=== PATIENT | male | born 1965 | race African-American/Black ===

== ENCOUNTER 2025-01-20 13:23 | Inpatient (IN) | payer OTHER, MEDICAID ==
[~2025-01-20] VITALS: Ht 185.4 cm; Wt 102.1 kg
[2025-01-20] MEDS ORDERED: SIMV-259 PO (14:35)
[2025-01-20] MEDS ORDERED: AMLO2.5T96 PO (14:35)
[2025-01-20] MEDS ORDERED: LISI-892 PO (14:35)
[2025-01-20] MEDS ORDERED: QUET25TA PO (14:35)
[2025-01-20 15:36] LABS: ANION GAP 12 mmol/L (8-16); CARBON DIOXIDE 25 mmol/L (22-29); CHLORIDE 108 mmol/L (98-107); CREATININE 1.26 mg/dL (0.60-1.30); GLOMERULAR FILTR. RATE CALC > 60 mL/min (>60); GLUCOSE,RANDOM 149 mg/dL (70-110); POTASSIUM 3.7 mmol/L (3.5-5.1); SODIUM SERUM 144 mmol/L (136-145); UREA NITROGEN, BLOOD 16 mg/dL (7-18)
[2025-01-20 15:51] LABS: ALCOHOL, BLOOD (SERUM) < 3 mg/dL (0-10)
[2025-01-20 16:19] LABS: EOSINOPHILS % (AUTO) 0.2 % (1.0-6.0); HEMATOCRIT 48.5 % (41-53); HEMOGLOBIN 16.2 g/dL (13.5-17.5); LYMPHOCYTES # (AUTO) 1.7 K/uL (1.0-4.8); LYMPHOCYTES % (AUTO) 18.7 % (22.0-44.0); MEAN CORPUSCULAR HEMOGLOBIN 29.4 pg (26.0-34.0); MEAN CORPUSCULAR HGB CONC 33.4 G/dL (31.0-37.0); MEAN CORPUSCULAR VOLUME 88 fL (80-100); MONOCYTES # (AUTO) 0.9 K/uL (0.1-1.0); MONOCYTES % (AUTO) 9.2 % (2.0-9.0); NEUTROPHILS # (AUTO) 6.6 K/uL (1.8-7.7); NEUTROPHILS % (AUTO) 70.9 % (40.0-70.0); PLATELET COUNT (AUTO) 194 K/uL (150-450); RED BLOOD CELL COUNT(AUTO) 5.51 MIL/uL (4.50-5.90); RED CELL DISTRIBUTION WIDTH 14.3 % (11.5-14.5); WHITE BLOOD COUNT (AUTO) 9.3 K/uL (4.5-11.0)
[2025-01-20] MEDS ORDERED: ASPI81TA87 PO (17:12)
[2025-01-20] MEDS ORDERED: CARV3 PO (17:12)
[2025-01-20 17:39] LABS: COVID AG,FIA SOURCE NPH
[2025-01-20 18:01] LABS: SARS-COV2 (COVID) ANTIGEN,FIA Negative (Negative)
[2025-01-20] MEDS ORDERED: HALOPERIDOL 5 MG TABLET PO PRN (18:30)
[2025-01-21 02:10] VITALS: BP 134/73; PULSE 94; RESP 18; TEMP 98.6; O2SAT 99
[2025-01-21] MEDS: LORazepam 2 MG TABLET PO PRN (02:24)
[2025-01-21] MEDS: ZOLPIDEM TARTRATE 10 MG TABLET PO PRN (02:25)
[2025-01-21] MEDS ORDERED: IBUPROFEN 400 MG TABLET PO PRN (10:45)
[2025-01-21] MEDS ORDERED: ALBUTEROL SULFATE HFA 90 MCG/PUFF 8 GM INHALER IH PRN (10:45)
[2025-01-21] MEDS ORDERED: DOCUSATE SODIUM 100 MG CAPSULE PO PRN (10:45)
[2025-01-21] MEDS ORDERED: GuaiFENesin/D-METHORPHAN [SUGAR-FREE] 200-20MG/10 ML SYRUP UDCUP PO PRN (10:45)
[2025-01-21] MEDS ORDERED: CloNIDine HCL 0.1 MG TABLET PO PRN (10:45)
[2025-01-21] MEDS ORDERED: NICOTINE 14 MG/24 HOUR PATCH TD PRN (10:45)
[2025-01-21] MEDS ORDERED: ONDANSETRON 4 MG TABLET PO PRN (10:45)
[2025-01-21] MEDS ORDERED: MAGNESIUM HYDROXIDE SUSPENSION 30 ML UDCUP PO PRN (10:45)
[2025-01-21] MEDS ORDERED: MAG HYDROX/ALUMINUM HYD/SIMETH ES 30 ML SUSPENSION UDCUP PO PRN (10:45)
[2025-01-21] MEDS ORDERED: PETROLATUM,WHITE 28 GM JELLY TP PRN (10:45)
[2025-01-21] MEDS ORDERED: LOPERAMIDE HCL 2 MG CAPSULE PO PRN (10:45)
[2025-01-21] MEDS ORDERED: ACETAMINOPHEN 325 MG TABLET PO PRN (10:45)
[2025-01-21] MEDS: QUEtiapine FUMARATE 100 MG TABLET PO SCH (10:52)
[2025-01-21 10:59] VITALS: BP 116/90; PULSE 87; RESP 18; TEMP 97.8; O2SAT 100
[2025-01-21 22:21] VITALS: BP 119/70; PULSE 72; RESP 16; TEMP 97.6; O2SAT 100
[2025-01-22] MEDS: ASPIRIN 81 MG DR TABLET PO SCH (09:18)
[2025-01-22 09:43] VITALS: BP 135/76; PULSE 81; RESP 18; TEMP 97.7; O2SAT 100
[2025-01-22 21:07] VITALS: BP 157/91; PULSE 83; RESP 18; TEMP 98.1; O2SAT 98
[2025-01-22 21:26] LABS: APPEARANCE,URINE CLEAR (CLEAR); BILIRUBIN,URINE NEGATIVE (NEGATIVE); COLOR,URINE LIGHT YELLOW (YELLOW); GLUCOSE, URINE (UA) >=1000 mg/dL (NEGATIVE); KETONES,URINE TRACE mg/dL (NEGATIVE); LEUKOCYTE ESTERASE ,URINE NEGATIVE (NEGATIVE); NITRATE,URINE NEGATIVE (NEGATIVE); OCCULT BLOOD,URINE SMALL (NEGATIVE); PH,URINE 5.5 (5.0-8.0); PH,URINE DRUG SCREEN 5.5 (5.0-8.0); PROTEIN,URINE NEGATIVE (NEGATIVE); SPECIFIC GRAVITIY, URINE 1.029 (1.003-1.030); UROBILINOGEN,URINE <=1.0 mg/dL (<=1.0)
[2025-01-22 21:33] LABS: ALCOHOL, URINE DRUG SCREEN NEGATIVE (NEGATIVE); AMPHET/METH SCREEN,URINE POSITIVE (NEGATIVE); BARBITURATE SCREEN, URINE NEGATIVE (NEGATIVE); BENZODIAZEPINES SCREEN,URINE NEGATIVE (NEGATIVE); CANNABINOID SCREEN,URINE NEGATIVE (NEGATIVE); COCAINE SCREEN,URINE NEGATIVE (NEGATIVE); METHADONE SCREEN, URINE NEGATIVE (NEGATIVE); OPIATE SCREEN,URINE NEGATIVE (NEGATIVE); PHENCYCLIDINE SCREEN,URINE NEGATIVE (NEGATIVE)
[2025-01-22 21:34] LABS: BACTERIA,URINE Rare /HPF (None Seen); RBC,URINE 0-2 /HPF (0-2); SQUAMOUS EPITHELIAL CELL,UR Rare /LPF (None Seen); WBC,URINE 0-2 /HPF (0-5)
[2025-01-23 08:28] LABS: HEMOGLOBIN A1C 7.4 % (3.8-5.6)
[2025-01-23 08:29] LABS: THYROID STIMULATING HORMONE 0.47 uIU/mL (0.36-3.74)
[2025-01-23 08:46] LABS: CHOL/HDL RATIO 3.1 (4.2-7.3)
[2025-01-23 09:59] VITALS: BP 142/89; PULSE 78; RESP 20; TEMP 97.9
[2025-01-23] MEDS: AmLODIPine BESYLATE 2.5 MG TABLET PO SCH (10:01)
[2025-01-23 22:44] VITALS: BP 125/82; PULSE 84; RESP 18; TEMP 97.1; O2SAT 97
[2025-01-24 09:11] VITALS: BP 123/80; PULSE 85; RESP 18; TEMP 97.7; O2SAT 99
[2025-01-24 22:53] VITALS: BP 141/92; PULSE 79; RESP 18; TEMP 97.7; O2SAT 100
[2025-01-25 10:55] VITALS: PULSE 72; RESP 17; TEMP 97.5; O2SAT 100
[2025-01-25 21:15] VITALS: PULSE 79; RESP 19; TEMP 98.2; O2SAT 98
[2025-01-25] MEDS: SIMVASTATIN 20 MG TABLET PO SCH (21:40)
[2025-01-26 09:52] VITALS: BP 132/91; PULSE 79; RESP 17; TEMP 98; O2SAT 97
[2025-01-26 22:11] VITALS: RESP 18
[2025-01-27 08:59] VITALS: BP 118/76; PULSE 62; RESP 18; TEMP 98; O2SAT 98
[2025-01-27 20:49] VITALS: BP 14/88; PULSE 77; RESP 18; TEMP 98.6
[2025-01-28 11:23] VITALS: BP 165/107; PULSE 69; RESP 18; TEMP 97.4; O2SAT 95
[2025-01-28 21:29] VITALS: BP 149/98; PULSE 69; RESP 18; TEMP 97.8; O2SAT 96
[2025-01-29] MEDS: CARVEDILOL 6.25 MG TABLET PO SCH (11:36)
[2025-01-29 12:46] VITALS: BP 141/107; PULSE 86; RESP 18; TEMP 98.2
[2025-01-29 21:42] VITALS: BP 141/86; PULSE 72; RESP 18; TEMP 98.2; O2SAT 98
[2025-01-30] MEDS: MetFORMIN HCL 500 MG TABLET PO SCH (07:06)
[2025-01-30 09:00] VITALS: BP 160/100; PULSE 83; RESP 18; TEMP 97.6
[2025-01-30 20:39] VITALS: BP 129/85; PULSE 16; RESP 16; TEMP 97.2; O2SAT 98
[2025-01-31 08:30] VITALS: BP 153/107; PULSE 68; RESP 18; TEMP 97.2; O2SAT 99
[2025-01-31 21:26] VITALS: BP 124/70; PULSE 77; RESP 18; TEMP 97.5; O2SAT 100
[2025-02-01 12:58] VITALS: BP 138/96; PULSE 78; RESP 18; TEMP 97.7; O2SAT 96
[2025-02-01 20:00] VITALS: BP 138/96; PULSE 78; RESP 19; TEMP 97.7; O2SAT 96
[2025-02-02 09:00] VITALS: BP 139/89; PULSE 96; RESP 19; TEMP 97; O2SAT 96
[2025-02-02] MEDS: OMEPRAZOLE 20 MG CAPSULE PO SCH (09:00)
[2025-02-02 20:37] VITALS: BP 115/70; PULSE 67; RESP 18; TEMP 97.1; O2SAT 99
[2025-02-03 08:42] VITALS: BP 126/75; PULSE 72; RESP 18; TEMP 98; O2SAT 98
[2025-02-03 20:30] VITALS: BP 138/85; PULSE 63; RESP 17; TEMP 97.9; O2SAT 100
[2025-02-04 11:07] VITALS: BP 136/87; PULSE 67; RESP 17; TEMP 97.5; O2SAT 98
[2025-02-04 21:30] VITALS: BP 128/72; RESP 18
[2025-02-05] MEDS ORDERED: OMEP-148 PO (09:48)
[2025-02-05] MEDS ORDERED: METF-1211 PO (09:48)
== END 2025-02-05 17:44 | disposition home or self-care (01) | DRG 885 ==
LOC: EMS 13:25 → 3EI 01-21 01:05 → EMS 01-21 01:30
PROVIDERS: ADMIT Psychiatry & Neurology Child & Adolescent Psychiatry; ATTEND Psychiatry & Neurology Child & Adolescent Psychiatry
PROC: GZHZZZZ Group Psychotherapy (ICD-10-PCS; principal; 2025-01-22)
PROC: GZ52ZZZ Individual Psychotherapy, Cognitive (ICD-10-PCS; 2025-01-22)
DX: F20.9 Schizophrenia, unspecified (principal); R45.851 Suicidal ideations; I10 Essential (primary) hypertension; E78.5 Hyperlipidemia, unspecified; G47.00 Insomnia, unspecified; Z20.822 Contact with and (suspected) exposure to COVID-19; E11.9 Type 2 diabetes mellitus without complications; F14.90 Cocaine use, unspecified, uncomplicated; K21.9 Gastro-esophageal reflux disease without esophagitis; F43.10 Post-traumatic stress disorder, unspecified; Z87.891 Personal history of nicotine dependence; Z91.148 Patient's other noncompliance with medication regimen for other reason
CPT/HCPCS: 80048; 80061; 80307; 81001; 83036; 84443; 85025; 99285; G0480